=== PATIENT | female | born 1960 | race Caucasian/White ===

== ENCOUNTER 2017-11-06 22:31 | Emergency (ER) | payer OTHER ==
[~2017-11-06 22:31] MED LIST: EFF75 PO; LAM100 PO; LAM25 PO; SYN15 PO
[2017-11-06 23:34] VITALS: BP 139/85
== END 2017-11-06 23:34 | disposition home or self-care (01) ==
LOC: ED 22:31
DX: N95.0 Postmenopausal bleeding (principal); I10 Essential (primary) hypertension; E11.9 Type 2 diabetes mellitus without complications; E03.9 Hypothyroidism, unspecified; M19.90 Unspecified osteoarthritis, unspecified site

== ENCOUNTER 2018-03-24 17:28 | Emergency (ER) | payer OTHER ==
[~2018-03-24] VITALS: Ht 162.6 cm; Wt 98.9 kg
[2018-03-24 19:01] LABS: CALCIUM 9.2 mg/dL (8.5-10.1); CARBON DIOXIDE 31.7 mmol/L (21-32); CHLORIDE SERUM 104 mmol/L (98-107); CREATININE SERUM 0.9 mg/dL (0.6-1.0); GFR1 > 60 mL/min; GLUCOSE SERUM 68 mg/dL (74-106); POTASSIUM SERUM 4.5 mmol/L (3.5-5.1); SODIUM SERUM 140 mmol/L (136-145)
[2018-03-24 20:29] VITALS: BP 129/80
== END 2018-03-24 20:29 | disposition home or self-care (01) ==
LOC: ED 17:28
PROVIDERS: Emergency Medicine
DX: S80.02XA Contusion of left knee, initial encounter (principal); S80.01XA Contusion of right knee, initial encounter; W01.0XXA Fall on same level from slipping, tripping and stumbling without subsequent striking against object, initial encounter; Y93.89 Activity, other specified; Y92.89 Other specified places as the place of occurrence of the external cause; Y99.8 Other external cause status; I10 Essential (primary) hypertension; E11.9 Type 2 diabetes mellitus without complications; M19.90 Unspecified osteoarthritis, unspecified site
CPT/HCPCS: 82962

== ENCOUNTER 2018-08-10 20:21 | Emergency (ER) | payer OTHER ==
[~2018-08-10] VITALS: Ht 162.6 cm; Wt 929.9 kg
[2018-08-10 20:59] VITALS: Ht 162.6 cm; Wt 929.9 kg
[2018-08-10 22:46] VITALS: BP 120/69
== END 2018-08-10 22:46 | disposition home or self-care (01) ==
LOC: ED 20:21
DX: F10.129 Alcohol abuse with intoxication, unspecified (principal); I10 Essential (primary) hypertension; E11.9 Type 2 diabetes mellitus without complications; E03.9 Hypothyroidism, unspecified; M19.90 Unspecified osteoarthritis, unspecified site; F31.9 Bipolar disorder, unspecified

== ENCOUNTER 2019-01-28 21:11 | Emergency (ER) | payer OTHER ==
[~2019-01-28] VITALS: Ht 165.1 cm; Wt 107.5 kg
[2019-01-28 21:23] VITALS: Ht 165.1 cm; Wt 107.5 kg
[2019-01-29 00:05] VITALS: BP 104/60
== END 2019-01-29 00:05 | disposition home or self-care (01) ==
LOC: ED 21:11
DX: S63.501A Unspecified sprain of right wrist, initial encounter (principal); S43.401A Unspecified sprain of right shoulder joint, initial encounter; S05.12XA Contusion of eyeball and orbital tissues, left eye, initial encounter; I10 Essential (primary) hypertension; E11.9 Type 2 diabetes mellitus without complications; F31.9 Bipolar disorder, unspecified; E03.9 Hypothyroidism, unspecified; M19.90 Unspecified osteoarthritis, unspecified site; Z98.890 Other specified postprocedural states; W18.39XA Other fall on same level, initial encounter; Y93.E1 Activity, personal bathing and showering; Y92.091 Bathroom in other non-institutional residence as the place of occurrence of the external cause; Y99.8 Other external cause status
CPT/HCPCS: A4570; Q0092

== ENCOUNTER 2020-09-29 20:34 | Emergency (ER) | payer OTHER, SELFPAY ==
[~2020-09-29] VITALS: Ht 165.1 cm; Wt 108.9 kg
[2020-09-29 20:38] VITALS: Ht 165.1 cm; Wt 108.9 kg
[2020-09-29 21:26] VITALS: BP 177/72
== END 2020-09-29 21:26 | disposition home or self-care (01) ==
LOC: ED 20:34
DX: U07.1 COVID-19 (principal); B34.9 Viral infection, unspecified; I10 Essential (primary) hypertension; E11.9 Type 2 diabetes mellitus without complications; F31.9 Bipolar disorder, unspecified; M19.90 Unspecified osteoarthritis, unspecified site
CPT/HCPCS: U0003